=== PATIENT | male | born 1975 | race Caucasian/White ===

== ENCOUNTER 2018-05-21 12:29 | Emergency (ER) | payer MEDICAID, OTHER ==
[2018-05-21] MEDS: IBUPROFEN 600 MG TAB PO (13:06)
[2018-05-21] MEDS: DEXAMETHASONE 4 MG TAB PO (13:07)
== END 2018-05-21 14:23 | disposition home or self-care (01) ==
LOC: FTE 12:29
DX: J06.9 Acute upper respiratory infection, unspecified (principal)
CPT/HCPCS: 71045; 99283-25